=== PATIENT | female | born 2000 | race Asian ===

== ENCOUNTER 2022-12-02 15:29 | Emergency (ER) | payer MEDICAID ==
[~2022-12-02] VITALS: Ht 160 cm; Wt 77.2 kg
[2022-12-02 15:41] VITALS: BP 120/71
[2022-12-02 17:12] LABS: BASOPHILS % 0.5 % (0.0-2.0); EOSINOPHILS % 0.7 % (0.0-5.0); HEMATOCRIT. 42.1 % (36.0-48.0); HEMOGLOBIN. 13.8 g/dL (12.0-16.0); LYMPHOCYTES % 19.5 % (20.0-50.0); MEAN CORPUSCULAR HEMOGLOBIN 29.1 pg (28.0-32.0); MEAN CORPUSCULAR VOLUME 88.7 fL (81.0-99.0); MEAN PLATELET VOLUME 8.4 fl (7.4-10.4); MONOCYTES % 7.4 % (2.0-8.0); NEUTROPHILS % 71.9 % (40.0-76.0); PLATELET 243 x1000/uL (130-400); RED BLOOD CELL COUNT 4.75 mill/uL (4.2-5.4); RED CELL DISTRIBUTION WIDTH 13.9 % (11.6-14.6)
[2022-12-02 17:14] LABS: CHLORIDE 100 mEq/L (98-107)
[2022-12-02 17:16] LABS: CLARITY URINE CLOUDY (CLEAR); COLOR URINE DARK YELLOW (YELLOW); KETONES URINE 2+ (NEGATIVE); LEUKOCYTE ESTERASE URINE 3+ (NEGATIVE); NITRITE URINE NEGATIVE (NEGATIVE); OCCULT BLOOD URINE NEGATIVE (NEGATIVE); PROTEIN URINE TRACE (NEGATIVE); SPECIFIC GRAVITY URINE 1.027 (1.005-1.030)
[2022-12-02 17:21] LABS: INR 1.1; PROTHROMBIN TIME 11.8 sec (9.6-11.0)
== END 2022-12-02 20:13 | disposition left against medical advice (07) ==
LOC: ER 15:29
DX: R22.0 Localized swelling, mass and lump, head (principal); J45.909 Unspecified asthma, uncomplicated
CPT/HCPCS: 36415; 70486; 80053; 81003; 81025; 85025; 99284